=== PATIENT | male | born 1980 | race Caucasian/White ===

== ENCOUNTER 2023-01-05 11:40 | Emergency (ER) | payer BC, SELFPAY ==
[2023-01-05 11:43] VITALS: BP 149/93; PULSE 97; RESP 20; TEMP 36.3; O2SAT 99
--- NOTE | 2023-01-05 14:02 | ED.SKABFB ---
HPI - Skin/Abscess/Foreign Bdy General Chief complaint: Skin/Abscess/Foreign Body Stated complaint: facial swelling Time Seen by Provider: 01/05/23 12:39 History of Present Illness HPI narrative: Patient is a 42-year-old male who presents ER with swelling of his upper nose near the eyebrows. Developed this afternoon after squeezing a pustule located in his forehead. Pustule is very tender and is developed over the last couple of days. Patient reports she had an infection of his abdominal wall several weeks ago and was on antibiotics but has since finished those. Feels like his abdominal wall is fine. No fevers or chills but he has had some sweats but feels like it is due to the pain. No other areas of infection. No runny nose or sore throat or productive cough. Related Data Allergies Allergy/AdvReac Type Severity Reaction Status Date / Time No Known Allergies Allergy Verified 01/05/23 11:41 Review of Systems Review of Systems: All systems reviewed & are unremarkable except as noted in HPI and below Constitutional: Constitutional: Denies chills, Denies fatigue and Denies fever(s) Comments: Positive sweats ENT: Denies nasal congestion and Denies sore throat Integumentary/Breasts: Skin/Breast: Denies erythema and Denies rash Comments: Abscess scalp PMFSH Past Medical History Medical History (Updated 01/05/23 @ 14:13 by Jefferson Lara MD) Healthy adult male Surgical History Surgical History (Updated 01/05/23 @ 14:13 by Jefferson Lara MD) No pertinent past surgical history Exam Narrative: GENERAL: Well-appearing, well-nourished, and in no acute distress. HEAD: Normocephalic, atraumatic. Infected hair follicle midline at the forehead. ENT: Mucous membranes moist. Swelling over the nasal bridge near the eyes bilaterally without tenderness in this region. No cellulitis. NECK: Supple. CHEST: Clear to auscultation. No respiratory distress. HEART: Regular rate and rhythm. Normal peripheral pulses. EXTREMITIES: Normal range of motion. No edema. NEURO: Alert and oriented x3. PSYCH: Normal mood and affect. Course Course Emergency Course: Scant pus obtained. Discussed treatment plan. Patient verbalized understanding. Discharge home. Vital Signs Vital signs: Vital Signs Temperature 97.4 F L 01/05/23 11:43 Pulse Rate 97 01/05/23 11:43 Respiratory Rate 20 01/05/23 11:43 Blood Pressure 149/93 H 01/05/23 11:43 Pulse Oximetry 99 01/05/23 11:43 Oxygen Delivery Room Air 01/05/23 11:43 Temperature 97.4 F L 01/05/23 11:43 Pulse Rate 97 01/05/23 11:43 Respiratory Rate 20 01/05/23 11:43 Blood Pressure 149/93 H 01/05/23 11:43 Pulse Oximetry 99 01/05/23 11:43 Oxygen Delivery Room Air 01/05/23 11:43 Procedures Abscess I/D scalp: Date of Incision: 01/05/23 Time of Incision: 13:45 Technique: needle aspiration Irrigation: No Packing used?: none I&D Results: Pus Abcess I&D Additional Comments: Scant discharge. Discharge Plan Discharge Clinical Impression: Abscess of scalp Patient Disposition: Home, Self-Care Condition: Stable Instructions: Abscess (ED) Additional Instructions: You have a small scalp abscess. Take the antibiotics as prescribed. Additionally apply topical antibiotics. Warm compresses will also help with drainage. Return the ER if you have fever over 100.4 ?F, you lose consciousness, you have additional concerns. Prescriptions: New sulfamethoxazole-trimethoprim [Bactrim DS] 800-160 mg tablet 1 tablet PO Q12H Qty: 14 0RF mupirocin 2 % ointment 1 applic topical BID Qty: 15 0RF hydrocodone-acetaminophen 5-325 mg tablet 1 tablet PO Q6H PRN (Reason: pain) Qty: 14 0RF Follow-up/Referrals: PHYSICIAN NOT ON STAFF,NONSTAFF [Primary Care Provider] - 1 Week
== END 2023-01-05 14:30 | disposition home or self-care (01) ==
PROVIDERS: Emergency Provider Emergency Medicine
DX: L02.811 Cutaneous abscess of head [any part, except face] (principal)
CPT/HCPCS: 10160; 99283

== ENCOUNTER 2023-01-06 12:43 | Emergency (ER) | payer BC, SELFPAY ==
[2023-01-06 12:53] VITALS: BP 159/100; PULSE 103; RESP 20; TEMP 36.1; O2SAT 99
--- NOTE | 2023-01-06 15:01 | ED.WOUNDLAC ---
HPI - Wound/Laceration General Chief Complaint: Wound/Laceration Stated Complaint: eye swelling Time Seen by Provider: 01/06/23 14:47 History of Present Illness HPI narrative: 42-year-old male presenting here after he had been seen yesterday for an abscess on the top of his head that has been draining, he was able to sheepskin pickler his antibiotics and has taken it for a day, presenting here because he had gone to sleep and woke up and noticed that his eyes were more swollen. He has no pain to his face or his eyes nor blurry vision nor pain with movement of his eyes. No swelling of his lips or tongue or difficulty breathing, no nausea or vomiting, no fevers or chills. Denies any methamphetamine or IV drug use Related Data Allergies Allergy/AdvReac Type Severity Reaction Status Date / Time No Known Allergies Allergy Verified 01/05/23 11:41 Review of Systems Review of Systems: CONST: No fever. HEENT: Swelling around his eyes C/V: No chest pain RESP: No cough GI: No abdominal pain : No dysuria. M/S: No joint pain. SKIN: Redness and swelling on the top of his head NEURO: [No headache or focal numbness or weakness] PSYCH: [No depression] FORMERLY [facility], 1928–1983 Past Medical History Medical History (Updated 01/06/23 @ 14:59 by Mayelin Crockett MD) Healthy adult male Surgical History Surgical History (Updated 01/05/23 @ 14:13 by Jefferson Lara MD) No pertinent past surgical history Exam Narrative: EXAMINATION OF ORGAN SYSTEMS/BODY AREAS: Constitutional: Vital signs per nursing GENERAL:[No acute distress, non-toxic appearing.] HEAD: Normal with no signs of head trauma. EYES: Painless EOMI, conjunctiva normal, periorbital edema ENT: No lip or tongue swelling, normal voice LUNGS: Nonlabored breathing. HEART: [Regular rate and rhythm] ABD: [Soft], [nontender to palpation] EXT: Normal range of motion, multiple areas on bilateral arms that look like skin picking SKIN: Indurated area to the top of the head without any fluctuance with some mild swelling, multiple areas on the body that looks like skin picking NEURO: [Alert and oriented x 3. No gross focal sensory or strength deficits.] PSYCH: Slightly nervous/twitchy affect Course Vital Signs Vital signs: Vital Signs Temperature 97.0 F L 01/06/23 12:53 Pulse Rate 103 H 01/06/23 12:53 Respiratory Rate 20 01/06/23 12:53 Blood Pressure 159/100 H 01/06/23 12:53 Pulse Oximetry 99 01/06/23 12:53 Oxygen Delivery Room Air 01/06/23 12:53 Temperature 97.0 F L 01/06/23 12:53 Pulse Rate 94 01/06/23 15:14 Respiratory Rate 16 01/06/23 15:14 Blood Pressure 141/86 H 01/06/23 15:14 Pulse Oximetry 98 01/06/23 15:14 Oxygen Delivery Room Air 01/06/23 12:53 MDM - Wound/Laceration MDM Narrative Medical decision making narrative: 42-year-old male presents here for wound recheck, he had been diagnosed with an abscess yesterday on his head, he is here because he is noticing some swelling to his eyes. Vital signs stable, on exam he has some periorbital swelling, abscess here is nonfluctuant and no longer draining, there is no large area of induration, it is not very tender, he has intact extraocular movements without any pain, no erythema or induration anywhere other than the small area of abscess on the top of his head. She is I have offered labs and imaging at this time though I do not feel this is necessary, and patient declined this, he would just like to try some steroids to see if that helps with the swelling. I feel this is very reasonable, he has been on Bactrim in the past and states that that has worked for him so I will have him continue this. Strict return precautions are discussed with mother at bedside. He is agreeable to outpatient follow-up at this time Discharge Plan Discharge Clinical Impression: Periorbital swelling, Abscess Patient Disposition: Home, Self-Care Condition: Stable Instructions: Antibiotic Form, Edema (ED), Ab
[2023-01-06] MEDS: predniSONE 20 MG TABLET 40 MG PO (15:10)
[2023-01-06 15:14] VITALS: BP 141/86; PULSE 94; RESP 16; O2SAT 98
== END 2023-01-06 15:15 | disposition home or self-care (01) ==
LOC: ANHED 15:05
PROVIDERS: Emergency Provider Emergency Medicine
DX: H05.013 Cellulitis of bilateral orbits (principal)
CPT/HCPCS: 99283; J7512

== ENCOUNTER 2023-03-30 13:09 | Emergency (ER) | payer BC, SELFPAY ==
[2023-03-30 13:19] VITALS: BP 169/88; PULSE 93; RESP 16; TEMP 36.6; O2SAT 99
--- NOTE | 2023-03-30 13:56 | ED.SKABFB ---
HPI - Skin/Abscess/Foreign Bdy General Chief complaint: Skin/Abscess/Foreign Body Stated complaint: Feet Swelling/Head Rash Time Seen by Provider: 03/30/23 13:56 Source: patient Mode of arrival: ambulatory Limitations: no limitations History of Present Illness HPI narrative: 42-year-old male presents with complaint open draining sore to back of head for approximately 1 week. Patient reports history of MRSA. Has had open the wound to scalp in the past. Reports last time he went to the ER and was given antibiotic and antibiotic ointment. Patient also reports or legs for the past several weeks. Swelling does not decrease when legs elevated or overnight. Denies pain to links. Patient thinks that legs are swollen due to an infection on his scalp. Denies urinary complaints. No chest pain or shortness of breath. Afebrile. All systems reviewed and negative except as noted above. Related Data Allergies Allergy/AdvReac Type Severity Reaction Status Date / Time No Known Allergies Allergy Verified 01/05/23 11:41 Review of Systems Review of Systems: CONSTITUTIONAL: Denies fever, chills, or sweats. EYES: Denies visual changes, redness, or discharge. ENT: Denies rhinorrhea, congestion, sore throat, or otalgia. CARDIOVASCULAR: Denies chest pain, palpitations. Reports lower leg swelling. RESPIRATORY: Denies cough or dyspnea. GASTROINTESTINAL: Denies abdominal pain, nausea, vomiting, or diarrhea. GENITOURINARY: Denies dysuria or hematuria. SKIN: Denies rash or itching. Reports open draining sore to posterior scalp MUSCULOSKELETAL: Denies back pain, joint pain, or myalgia. NEUROLOGIC: Denies headache, numbness, or weakness. PSYCHIATRIC: Denies anxiety or depression. All other systems reviewed are negative, except as documented in HPI. PMFSH Past Medical History Medical History (Updated 04/02/23 @ 08:45 by Tracey Rowe NP) Healthy adult male Surgical History Surgical History (Updated 01/05/23 @ 14:13 by Jefferson Lara MD) No pertinent past surgical history Comments At time of signature, agree with nursing past medical, surgical, social and family history. There is no relevant family history pertinent to the presenting complaint. Exam Narrative: GENERAL: This is a well-nourished, well-developed patient, in no apparent distress. Patient has pale appearance. HEAD: normocephalic, atraumatic. EYES: PERRL. Sclera clear/white. Vision is grossly intact. EARS: External ears normal NOSE: External nose normal NECK: Neck supple, non-tender without lymphadenopathy, masses or thyromegaly. CARDIOVASCULAR: Regular rate and rhythm without murmurs, gallops, or rubs. RESPIRATORY: Clear to auscultation. Breath sounds equal bilaterally. No wheezes, rales, or rhonchi. SKIN: warm, Dry, intact with no suspicious lesions or rash, good texture and turgor. No open draining and there sore to left posterior occiput. Drainage is purulence with tenderness on palpation. Erythematous and swollen. NEURO: awake, alert, and oriented to person, place and time. There were no obvious focal neurologic abnormalities. EXTREMITIES: No joint tenderness, effusion. 2+ pitting edema to bilateral lower extremities. Course Course Level of Care: Express Care Visit Vital Signs Vital signs: Vital Signs Temperature 36.6 C 03/30/23 13:19 Pulse Rate 93 03/30/23 13:19 Respiratory Rate 16 03/30/23 13:19 Blood Pressure 169/88 H 03/30/23 13:19 Pulse Oximetry 99 03/30/23 13:19 Oxygen Delivery Room Air 03/30/23 13:19 Temperature 36.6 C 03/30/23 13:19 Pulse Rate 93 03/30/23 13:19 Respiratory Rate 16 03/30/23 13:19 Blood Pressure 169/88 H 03/30/23 13:19 Pulse Oximetry 99 03/30/23 13:19 Oxygen Delivery Room Air 03/30/23 13:19 Reviewed, BP elevated today. Patient is not on any medications to treat hypertension. MDM - Skin/Abscess/Foreign Bdy MDM Narrative Medical decision making narrative: Recomm
--- NOTE | 2023-03-30 14:09 | PC.NURSE ---
was unable to give urine spec. stated has not been urinating much lately.
[2023-03-30 14:10] LABS: Glucose Point of Care 116 mg/dl (65-105)
== END 2023-03-30 14:20 | disposition left against medical advice (07) ==
PROVIDERS: Emergency Provider Nurse Practitioner Family
DX: L08.9 Local infection of the skin and subcutaneous tissue, unspecified (principal); M79.89 Other specified soft tissue disorders; R03.0 Elevated blood-pressure reading, without diagnosis of hypertension
CPT/HCPCS: 82948; 99212; G0463

== ENCOUNTER 2025-01-22 10:24 | Emergency (ER) | payer BC, SELFPAY ==
--- NOTE | 2025-01-22 10:29 | ED.DENTAL ---
HPI - Dental/Oral General Chief complaint: Dental/Oral Stated complaint: Broken Jaw Infection Time Seen by Provider: 01/22/25 10:40 Source: patient Mode of arrival: ambulatory Limitations: no limitations History of Present Illness HPI Narrative: 44-year-old male presents with concern for infection in his face. He reports 3 weeks ago he broke his jaw in 2 places, including the lower anterior mandible. He reports he was observed in the hospital for 24 hours and discharged with antibiotics. Reports he took 3 days of antibiotics and then was unable to finish them due to life circumstances. He reports he also has not followed up with surgery as directed due to life circumstances. He now reports that chin has been red, swollen, tender and has purulence drainage. He denies fever, body aches, chills, sweats. He denies dental pain. He denies drainage on the inside of his mouth. Related Data Home Medications ?Medication ?Instructions ?Recorded ?Confirmed ?Last Taken ?Type amoxicillin 875 mg-potassium tablet 01/22/25 Unknown History clavulanate 125 mg tablet Allergies Allergy/AdvReac Type Severity Reaction Status Date / Time No Known Allergies Allergy Verified 01/22/25 10:37 Review of Systems Review of Systems: CONSTITUTIONAL: Denies malaise, chills, sweats, or fever. EYES: Denies visual changes ENT: Reports pain, swelling, redness to the chin with purulent drainage CARDIOVASCULAR: Denies chest pain, palpitations RESPIRATORY: Denies cough or dyspnea. SKIN: Denies rash or itching. MUSCULOSKELETAL: Denies myalgia. NEUROLOGIC: Denies numbness, weakness, or headache. All systems reviewed & are unremarkable except as noted in HPI and below PMFSH Past Medical History Medical History (Updated 01/22/25 @ 10:48 by Johanna Talbert NP) Healthy adult male Surgical History Surgical History (Updated 01/05/23 @ 14:13 by Jefferson Lara MD) No pertinent past surgical history Comments At time of signature, agree with nursing past medical, surgical, social and family history. There is no relevant family history pertinent to the presenting complaint Exam Narrative: GENERAL: Well-appearing, well-nourished, and in no acute distress. HEAD: Normocephalic, atraumatic. EYES: PERRLA, sclera clear ENT: Nares clear, no rhinorrhea or epistaxis. Mucous membranes moist. Oropharynx without erythema or lesions. Dentalgia grossly normal. NECK: Supple. No lymphadenopathy. CHEST: No respiratory distress. Speaks in full sentences. HEART: Regular rate and rhythm. SKIN: Warm, dry, no visible rash. Erythema, edema, tenderness with scabbed skin noted to the chin NEURO: Alert and oriented x3. PSYCH: Normal mood and affect Course Course Emergency Course: Discussion was had at length with patient about need for transfer to the emergency room based on his history of jaw fracture without antibiotic treatment and his current symptoms. Patient is refusing transfer to the emergency room. I will treat the patient to the best of my ability with antibiotics and advised to go to the emergency room soon as possible. Portions of this record may have been created with voice recognition software Level of Care: Express Care Visit Vital Signs Vital signs: Reviewed. MDM - Dental/Oral MDM Narrative Medical decision making narrative: The patient has requested to leave the Urgent Care against medical advice. The patient reason(s) for leaving include, but are not limited to, the following: ?I have too much to do today go to the ER I believe this patient is of sound mind and competent to refuse medical care. The patient is responding and asking questions appropriately. The patient is oriented to person, place and time. The patient is not psychotic, delusional, suicidal, homicidal or hallucinating. The patient demonstrates a normal mental capacity to make decisions regarding their healthcare. The patient is clinically sober and does not appear to be under the influence of any illicit drugs at this time. The patient has been advised of the risks, in layman terms, of leaving AMA which include, but are not limited to , coma, permanent disability, loss of current lifestyle, delay in diagnosis. Alternatives have been offered - the patient remains steadfast in their wish to leave without transfer to the emergency room. The patient has been advised that should they change their mind they should promptly go to the emergency room. The patient understands that in no way does an AMA discharge mean that I do not want them to have the best medical care available. To this end, I have provided appropriate prescriptions, referrals, and discharge instructions. The patient did sign AMA paperwork. The above discussion was witnessed by another member of staff. Differential Diagnosis Differential diagnosis: Likely gingival abscess, dental caries, toothache, dental abscess, fracture of tooth and aphthous ulcer Critical Care Time Critical Care Time Critical Care Time: No Discharge Plan Discharge Clinical Impression: Infection Patient Disposition: Left Against Medical Advice Condition: Stable Instructions: Antibiotic Form, Osteomyelitis (ED) Additional Instructions: As discussed, it is my advice that he seek care in the emergency room right away to treat possible bone infection which could require IV antibiotics or surgery. I will treat your infection is the best my ability with oral antibiotics, however this may not be sufficient. Your infection going untreated could lead to disability or . Please go to the emergency room as soon as you can for appropriate treatment for your infection. Patient Language: Upper Sorbian Prescriptions: New clindamycin HCl 300 mg capsule 300 mg PO Q8H 7 Days Qty: 21 0RF No Action amoxicillin-pot clavulanate 875-125 mg tablet Follow-up/Referrals: PHYSICIAN,PYROMETER MECHANIC [Primary Care Provider] - Time of Disposition: 10:48
[2025-01-22 10:35] VITALS: BP 132/88; PULSE 97; RESP 18; TEMP 35.7; O2SAT 100
--- OUTSIDE RECORDS SUMMARY | 2025-01-22 10:51 | XMS_ITS | Clinical Summary ---
Author Organization [facility] Address [address] [address] Phone Care Team Providers Care Metal Bumper Name Role Phone Provider, None Primary Care Provider Unavailabl e Allergies No known active allergies Medications * This document contains information received from the source organization and may not represent a complete record from that organization. methocarbamol (ROBAXIN) 750 MG Tablet Take 1 Tablet by mouth every 6 hours as needed for Other (For muscle aches) for up to 24 doses. 24 Tablet 5 Active buprenorphine 2 MG SL TabletIndicatio ns:Stimulant withdrawal (HCC),Opioid withdrawal (HCC) 1 Tablet by Sublingual route every 12 hours as needed for Withdrawal for up to 4 doses. 4 Tablet 5 Active naloxone HCl (Narcan) 4 MG/0.1ML Liquid 1 Bandy by Nasal route as needed for Opioid Reversal. Administer in one nostril for symptoms of overdose (severe sleepiness, breathing problems, not responsive). Call 911. May repeat 1 spray in alternate nostril in 2-3 minutes if needed. 2 Each 5 Active Active Problems Problem Noted Date Diagnosed Date Opioid withdrawal 11/15/2024 Stimulant withdrawal 11/15/2024 MRSA cellulitis 11/19/2023 Overview (11/15/2024): to BLE cellulitis Airway intubation performed without difficulty 0 11/19/2023 Overview (11/15/2024): intubated d/t combativeness during detox Subclinical hypothyroidism Pre-diabetes Pulmonary HTN Anxiety Leg swelling Overview (11/15/2024): chronic BLE swelling PTSD (post-traumatic stress disorder) Fentanyl dependence Cocaine abuse Methamphetamine abuse Tobacco abuse Encounters * This document contains information received from the source organization and may not represent a complete record from that organization. Date Type Department Care Team Description 11/15/2024 Travel from Last 3 Months Social History Tobacco Use Types Packs/Day Years Used Date Smoking Tobacco: Every Day Cigarettes 0.5 34.6 Started: 1990 Smokeless Tobacco: Never Tobacco Cessation:Ready to Q uit: Not Asked; Counseling Given: Not Answered Alcohol Use Standard Drinks/Week Comments Not Currently 0 (1 standard drink = 0.6 oz pur e alcohol) [facility] Utilities Answer Date Recorded In the past 12 months has [employer] electric, gas, oil, or water [employer] threatened to shut off services in your home? Patient declined 11/15/2024 Social Connection and Isolation Panel Answer Date Recorded In a typical week, how many times do you talk on the phone with family, friends, or neighbors? Patient declined 11/15/2024 How often do you get togethe r with friends or relatives? Patient declined 11/15/2024 How often do you attend uatsdin or faith serv ices? Patient declined 11/15/2024 Do you belong to any clubs o r organizations such as uatsdin groups, unions, fraternal or athletic groups, or school groups? Patient declined 11/15/2024 How often do you attend meet ings of the clubs or organizations you belong to? Patient declined 11/15/2024 Are you , , di vorced, , never , or living with a partner? Patient declined 11/15/2024 AUDIT-C Answer Date Recorded Q1: How often do you have a drink containing alc ohol? Patient declined 11/15/2024 Q2: How many drinks containi ng alcohol do you have on a typical day when you are drinking? Patient declined 11/15/2024 Q3: How often do you have si x or more drinks on one occasion? Patient declined 11/15/2024 Overall Financial Resource Strain (CARDIA) Answe r Date Recorded How hard is it for you to pa y for the very basics like food, housing, medical care, and heating? Patient declined 11/15/2024 [facility] of Occupat ional Health - Occupational Stress Questionnaire Answer Date Recorded Do you feel stress - tense, restless, nervous, or anxious, or unable to sleep at night because your mind is troubled all the time - these days? Patient declined 11/15/2024 Exercise Vital Sign Answer Date Recorde d On average, how many days pe r week do you engage in moderate to strenuous exercise (like a brisk walk)? Patient declined On average, how many minutes do you engage in exercise at this level? Patient declined 11/15/2024 Hunger Vital Sign Answer Date Recorded Within the past 12 months, y ou worried that your food would run out before you got the money to buy more. Patient declined Within the past 12 months, t he food you bought just didn't last and you didn't have money to get more. Patient declined PRAPARE - Transportation Answer Date Re corded In the past 12 months, has l ack of transportation kept you from medical appointments or from getting medications? Patient declined 11/15/2024 In the past 12 months, has l ack of transportation kept you from meetings, work, or from getting things needed for daily living? Patient declined 11/15/2024 Housing Stability Vital Sign Answer Rito e Recorded In the last 12 months, was t here a time when you were not able to pay the mortgage or rent on time? Patient declined 11/16/19 25 In the past 12 months, how m any times have you moved where you were living? 0 11/15/2024 At any time in the past 12 m [facility], were you homeless or living in a custodial (including now)? Patient declined 11/15/2024 Sex and Gender Information Value Date Recorded Sex Assigned at Not on file Legal Sex Male 8:33 AM CDT Gender Identity Not on file Sexual Orientation Not on file Last Filed Vital Signs Vital Sign Reading Time Taken Comments Blood Pressure 113/75 11/18/2024 7:16 AM CDT Pulse 85 11/18/2024 7:16 AM CDT Temperature 36.1 C (97 F) 11/18/2024 7:16 AM CDT Respiratory Rate 20 11/18/2024 8:28 AM CDT Oxygen Saturation 100% 11/18/2024 7:16 AM CDT Inhaled Oxygen Concentration - - Weight 90.7 kg (200 lb) 11/15/2024 11:57 AM CDT Height 188 cm (6' 2) 11/15/2024 11:57 AM CDT Body Mass Index 25.68 11/15/2024 11:57 AM CDT Plan of Treatment Health Maintenance Due Date Last Done Comments Hepatitis B Immunization (1 of 3 - 19+ 3-dose series) 1999 Pneumococcal Immunization Co mbined (1 of 2 - PCV) 1999 Human Papillomavirus (HPV) Immunization (1 - 3-dose SCDM series) 2007 SARS-COV-2 Immunization (1 - 2023-25 season) 2024 Influenza Immunization (#1) 2025 Respiratory Syncytial Virus (RSV) Immunization (Adult) (1 - 1-dose 75+ series) 2055 TdaP Immunization Completed 11/23/2022 Hepatitis C Virus (HCV) Screening Completed 024 Meningococcal Immunization (ACWY) Aged Out No longer eligible based on patient's age to complete this topic Rotavirus Immunization Aged Out No lo nger eligible based on patient's age to complete this topic Procedures Procedure Name Priority Date/Time Associated Diagnosis Comments LAVENDER TOP TUBE Routine 11/18/2024 5:1 1 AM CDT EXTRA TUBES Routine 11/18/2024 5:11 AM CDT BASIC METABOLIC PANEL W/ CALCIUM TOTAL Routine 11/18/2024 5:11 AM CDT THYROID SCREEN WITH REFLEX Routine 11/17/2024 4:41 AM CDT THYROID SCREEN WITH REFLEX Routine 11/17/2024 4:41 AM CDT HEMOGLOBIN A1C W/ ESTIMATED GLUCOSE Routine 11/17/2024 4:41 AM CDT B-TYPE NATRIURETIC PEPTIDE (BNP) Routine 11/17/2024 4:41 AM CDT BASIC METABOLIC PANEL W/ CALCIUM TOTAL Routine 11/17/2024 4:41 AM CDT ADULT TRANS THORACIC ECHO 2D COMPLETE Routine 11/16/2024 8:31 PM CDT URINALYSIS (UA) MACROSCOPIC Routine 11/16/2024 7:39 AM CDT URINE DRUG SCREEN Routine 11/16/2024 7:3 9 AM CDT CBC WITH AUTO DIFFERENTIAL Routine 11/16/2024 3:52 AM CDT BASIC METABOLIC PANEL W/ CALCIUM TOTAL Routine 11/16/2024 3:52 AM CDT COMPLETE BLOOD COUNT (CBC) WITH DIFF Routine 11/16/2024 3:52 AM CDT RHYTHM STRIP 11/16/2024 12:00 AM CDT RHYTHM STRIP 11/16/2024 12:00 AM CDT RHYTHM STRIP 11/16/2024 12:00 AM CDT GOLD TOP TUBE Routine 11/15/2024 1:36 PM CDT CBC WITH AUTO DIFFERENTIAL Routine 11/15/2024 1:36 PM CDT EXTRA TUBES Routine 11/15/2024 1:36 PM CDT ETHYL ALCOHOL (ETHANOL) Routine 11/15/2024 1:36 PM CDT PROTIME (PT) (PROTHROMBIN TIME) Routine 11/15/2024 1:36 PM CDT CMP (COMPREHENSIVE METABOLIC PANEL) Routine 11/15/2024 1:36 PM CDT COMPLETE BLOOD COUNT (CBC) WITH DIFF Routine 11/15/2024 1:36 PM CDT RHYTHM STRIP 11/15/2024 12:00 AM CDT RHYTHM STRIP 11/15/2024 12:00 AM CDT from Last 3 Months Results * Lavender Top Tube (11/18/2024 5:11 AM CDT) Blood No Phlebotomy Charged / Unknown 11/18/2024 5:11 AM CDT 11/18/2024 5:11 AM CDT us Rubia Humphries MD HEMATOLOGY ORDERABLE S Final Result [facility] [place] [address] * (ABNORMAL) BMP Routine (11/18/2024 5:11 AM CDT) Only the most recent of3 resultswithin the time period is included. SODIUM 138 136 - 145 mmol/L 11/18/2024 5:34 AM CDT [facility] POTASSIUM 3.5 3.5 - 5.1 mmol/L 11/18/2024 5:34 AM CDT [facility] CHLORIDE 103 98 - 107 mmol/L 11/18/2024 5:34 AM CDT [facility] CO2, VENOUS 26 22 - 30 mmol/L 11/18/2024 5:34 AM CDT [facility] ANION GAP 12.5 <18.0 mmol/L 11/18/2024 5:34 AM CDT [facility] GLUCOSE 125(H) 70 - 99 mg/dL 11/18/2024 5:34 AM CDT [facility] BUN 13 9 - 21 mg/dL 11/18/2024 5:34 AM CDT [facility] CREATININE, BLOOD 1.27 0.70 - 1.30 mg/dL 11/18/2024 5:34 AM CDT [facility] BUN/CREATININE RATIO 10(L) 12 - 20 ratio 11/18/2024 5:34 AM CDT [facility] CALCIUM 8.3(L) 8.7 - 10.5 mg/dL 11/18/2024 5:34 AM CDT [facility] GFR, ESTIMATED >60 >=60 11/18/2024 5:34 AM CDT [facility] Comment: Creatinine Clearance is the preferred criteria for selecting drug dose adjustments in renally impaired patients. The GFR is provided as additional pertinent clinical information. GFR is reported in mL/min/1.73 sq m. Calculation based on the Chronic Kidney Disease Epidemiology Collaboration (CKD- EPI) equation refit without adjustment for race. GFR, EST. >60 >=60 025 5:34 AM CDT [facility] GFR, EST. NONAFRICAN >60 >=60 11/18/2024 5:34 AM CDT [facility] Blood BLOOD SPECIMEN / Unknown Venipuncture / Unknown 11/18/2024 5:11 AM CDT 11/18/2024 5:11 AM CDT Rubia Humphries MD CHEMISTRY ORDERABLES Final Result [facility] [address] [place] [address] * THYROID SCREEN WITH REFLEX (11/17/2024 4:41 AM CDT) TSH 0.992 0.300 - 5.000 mIU/L 11/17/2024 6:20 AM CDT [facility] Blood BLOOD SPECIMEN / Unknown Venipuncture / Unknown 11/17/2024 4:41 AM CDT 11/17/2024 5:33 AM CDT us Rubia Humphries MD CHEMISTRY ORDERABLES Final Result [facility] [address] [place] [address] * Hemoglobin A1C w/ Estimated Glucose (11/17/2024 4:41 AM CDT) HGB-A1C 5.2 4.0 - 6.0 % 11/17/2024 6:09 AM CDT [facility] Est Average Glucose 102.5 mg/dL 11/17/2024 6:09 AM CDT [facility] Blood Venipuncture / Unknown 11/17/2024 4:41 AM CDT 11/17/2024 5:32 AM CDT Narrative [facility] - 11/17/2024 6:09 AM CDT HEMOGLOBIN A1C: DIABETIC PATIENTS: WELL-CONTROLLED: 6.2 - 7.0 INTERMEDIATE WELL-CONTROLLED: 7.0 - 9.0 POORLY-CONTROLLED: >9.0 Specimens containing greater than 5% of Hemoglobin F may result in lower than expected % HbA1C results. Rubia Humphries MD CHEMISTRY ORDERABLES Final Result Performing Organization Address City/[facility] Co de Phone Number [facility] [address] [place] [address] * B-Type Natriuretic Peptide (BNP) (11/17/2024 4:41 AM CDT) Pathologist [facility] B TYPE NATRIURETIC PEPTIDE <15 <100 pg/mL 11/17/2024 6:00 AM CDT [facility] Blood Venipuncture / Unknown 11/17/2024 4:41 AM CDT 11/17/2024 5:31 AM CDT Rubia Humphries MD CHEMISTRY ORDERABLES Final Result Performing Organization Address [facility] de Phone Number [facility] [address] [place] [address] * ADULT TRANS THORACIC ECHO 2D COMPLETE (11/16/2024 8:31 PM CDT) AV Peak Grad mmHg 5.38 mmHg RESULTING AGENCY Mean Aortic Valve Gradient (MAVG) 3 mmHg RESULTING AGENCY LV end lillian diam cm 4.5 cm RESULTING AGENCY LV end sys diam cm 2.6 cm RESULTING AGENCY Aortic Root Diam cm 3.4 cm RESULTING AGENCY LVOT Peak Michael m/sec [id number] m/sec RESULTING AGENCY AV Peak Michael m/sec 1.16 m/sec RESULTING AGENCY MV Mean Grad mmHg 2 mmHg RESULTING AGENCY E/A Ratio 0.84 RESULTING AGENCY E/E' 5.8 RESULTING AGENCY AV Area (VTI) cm2 3.85 cm2 RESULTING AGENCY SEPTUM DIASTOLIC CM 1 cm RESULTING AGENCY PW DIASTOLIC CM 1 cm RESULTING AGENCY LV EF(estimated)% 73 RESULTING AGENCY Anatomical Region Laterality Modality CARDIO N/A Ultrasound Narrative 11/17/2024 11:21 AM CDT Transthoracic Echocardiography Report (TTE) Patient name YESSENIA Ratliff 1980 Patient ID (UP) [id number] Indications: Congestive heart failure. Study Date11/16/2024 Technical quality: Limited visualization Limitation Reason: Patient unable to roll to left side Type of Study: TTE procedure: Adult Trans Thoracic Echo 2D Complete. Priority:RoutineHR: 96 bpmBP: 125/70 mmHg Conclusions Summary - Normal LV size, diastolic and systolic function. estimated LVEF 70-75% - Normal right ventricular cavity size and normal systolic function. - No hemodynamically significant valvular abnormalities Findings Mitral Valve The mitral valve is normal. There is no evidence of mitral stenosis. There is no significant mitral regurgitation. Aortic Valve The aortic valve is trileaflet with normal leaflet excursion. There is no evidence of aortic valve stenosis. There is no significant aortic valve insufficiency. Tricuspid Valve The tricuspid valve is normal. There is no evidence of tricuspid stenosis. There is no significant tricuspid regurgitation. There is no evidence of pulmonary hypertension. Pulmonic Valve Not well visualized, no evidence by Doppler interrogation for significant stenosis or regurgitation. Left Atrium The left atrium size is normal. Left Ventricle -Normal LV size, diastolic and systolic function. estimated LVEF 70-75% Right Atrium The right atrium size is normal. Right Ventricle - Normal right ventricular cavity size and normal systolic function. Pericardial Effusion The pericardium is normal. There is no pericardial effusion visualized. Miscellaneous Aortic root and proximal ascending aorta are normal in size. Atrial septum appears intact. IVC is normal in size and respiratory response. Aortic arch appears normal. Valves Mitral Valve Peak E-Wave: 0.59 m/s Area (continuity): 2.87 cm^2 Peak A-Wave: 0.70 m/s Mean Velocity: 0.57 m/s Peak Gradient: 1.43 mmHg Mean Gradient: 2 mmHg Deceleration Time: 239 msec Tissue Doppler E' Velocity: 0.07 m/s E/E':5.8 E/A Ratio: 0.84 E/Lat E': 5.8 E/Med E':8.1 Aortic Valve Area (continuity): 3.85 cm^2 Mean Velocity: 0.78 m/s Area (VTI):3.85 cm^2 Mean Gradient: 3 mmHg Peak Velocity: 1.16 m/s AV VTI: 16.2 cm Peak Gradient: 5.38 mmHg Tricuspid Valve Peak E-Wave: 0.56 m/s Peak Gradient: 1.26 mmHg Pulmonic Valve Peak Velocity: 1.07 m/s Mean Velocity: 0.75 m/s Peak Gradient: 4.58 mmHg Mean Gradient: 3 mmHg LVOT Peak Velocity: 0.79 m/s Mean Velocity: 0.56 m/s Peak Gradient: 3 mmHg Mean Gradient: 1 mmHg LVOT Diameter: 2.2 cm LVOT VTI: 16.4 cm Stroke Volume: 62 ml Stroke Volume Index: 28.57 ml/m^2 Structures Left Ventricle Diastolic Dimension: 4.5 cm Systolic Dimension: 2.6 cm Septum Diastolic: 1 cm Septum Systolic: 1.1 cm PW Diastolic: 1 cm PW Systolic: 1.7 cm CO: 5.98 l/min CI: 2.76 l/min*m^2 RWT: 0.44 FS: 42.22 % LVOT Diameter: 2.2 cm Right Ventricle RVOT (PLAX) diameter:3.4 cm Tissue Doppler RV S': 26.9 Left Atrium LA Systolic Pressure: 9.25 mmHg LA Area: 13.6 cm^2 Right Atrium RA Area: 11.2 cm^2 Great Vessels Aorta Ascending Aorta: 2.7 cm Aorta Root:3.4 cm Ascending Aorta Index:1.24 cm/m^2 Demographics Age 44 Gender Male Race Height 74.02 in. Weight 200 lbs. BMI (BSA) 25.67 kg/m^2 (2.17 m^2) Financial Health Counselor Ady Susan Room 237 R Interpreting Bautista Referring [facility]ISM[facility]ATFIELD Physician Angelica Physician Procedure Note Angelica Baum MD - 11/17/2024 Transthoracic Echocardiography Report (TTE) Patient name YESSENIA BOBBY D.O.B. 1980 Patient ID ([facility]) [id number] Indications: Congestive heart failure. Study Date11/16/2024 Technical quality: Limited visualization Limitation Reason: Patient unable to roll to left side Type of Study: TTE procedure: Adult Trans Thoracic Echo 2D Complete. Priority:RoutineHR: 96 bpmBP: 125/70 mmHg Conclusions Summary - Normal LV size, diastolic and systolic function. estimated LVEF 70-75% - Normal right ventricular cavity size and normal systolic function. - No hemodynamically significant valvular abnormalities Findings Mitral Valve The mitral valve is normal. There is no evidence of mitral stenosis. There is no significant mitral regurgitation. Aortic Valve The aortic valve is trileaflet with normal leaflet excursion. There is no evidence of aortic valve stenosis. There is no significant aortic valve insufficiency. Tricuspid Valve The tricuspid valve is normal. There is no evidence of tricuspid stenosis. There is no significant tricuspid regurgitation. There is no evidence of pulmonary hypertension. Pulmonic Valve Not well visualized, no evidence by Doppler interrogation for significant stenosis or regurgitation. Left Atrium The left atrium size is normal. Left Ventricle -Normal LV size, diastolic and systolic function. estimated LVEF 70-75% Right Atrium The right atrium size is normal. Right Ventricle - Normal right ventricular cavity size and normal systolic function. Pericardial Effusion The pericardium is normal. There is no pericardial effusion visualized. Miscellaneous Aortic root and proximal ascending aorta are normal in size. Atrial septum appears intact. IVC is normal in size and respiratory response. Aortic arch appears normal. Valves Mitral Valve Peak E-Wave: 0.59 m/s Area (continuity): 2.87 cm^2 Peak A-Wave: 0.70 m/s Mean Velocity: 0.57 m/s Peak Gradient: 1.43 mmHg Mean Gradient: 2 mmHg Deceleration Time: 239 msec Tissue Doppler E' Velocity: 0.07 m/s E/E':5.8 E/A Ratio: 0.84 E/Lat E': 5.8 E/Med E':8.1 Aortic Valve Area (continuity): 3.85 cm^2 Mean Velocity: 0.78 m/s Area (VTI):3.85 cm^2 Mean Gradient: 3 mmHg Peak Velocity: 1.16 m/s AV VTI: 16.2 cm Peak Gradient: 5.38 mmHg Tricuspid Valve Peak E-Wave: 0.56 m/s Peak Gradient: 1.26 mmHg Pulmonic Valve Peak Velocity: 1.07 m/s Mean Velocity: 0.75 m/s Peak Gradient: 4.58 mmHg Mean Gradient: 3 mmHg LVOT Peak Velocity: 0.79 m/s Mean Velocity: 0.56 m/s Peak Gradient: 3 mmHg Mean Gradient: 1 mmHg LVOT Diameter: 2.2 cm LVOT VTI: 16.4 cm Stroke Volume: 62 ml Stroke Volume Index: 28.57 ml/m^2 Structures Left Ventricle Diastolic Dimension: 4.5 cm Systolic Dimension: 2.6 cm Septum Diastolic: 1 cm Septum Systolic: 1.1 cm PW Diastolic: 1 cm PW Systolic: 1.7 cm CO: 5.98 l/min CI: 2.76 l/min*m^2 RWT: 0.44 FS: 42.22 % LVOT Diameter: 2.2 cm Right Ventricle RVOT (PLAX) diameter:3.4 cm Tissue Doppler RV S': 26.9 Left Atrium LA Systolic Pressure: 9.25 mmHg LA Area: 13.6 cm^2 Right Atrium RA Area: 11.2 cm^2 Great Vessels Aorta Ascending Aorta: 2.7 cm Aorta Root:3.4 cm Ascending Aorta Index:1.24 cm/m^2 Demographics Age 44 Gender Male Race Height 74.02 in. Weight 200 lbs. BMI (BSA) 25.67 kg/m^2 (2.17 m^2) Financial Health Counselor Ady Davis Room 237 R Interpreting Bautista Referring [facility]ISM[facility] HATFIELD Physician Angelica Physician Bri Mora MD IMG ECHO ORDERABLES Edited Res ult - Final * (ABNORMAL) Urinalysis (Ua) Macroscopic (11/16/2024 7:39 AM CDT) SPECIFIC GRAVITY 1.010 1.003 - 1.030 11/16/2024 7:47 AM CDT [facility] URINE PH 7.0 5.0 - 9.0 11/16/2024 7:47 AM CDT [facility] WBC ESTERASE Negative Negative 11/16/2024 7:47 AM CDT [facility] NITRITE Negative Negative 11/16/2024 7:47 AM CDT [facility] PROTEIN, RANDOM URINE 30 mg/dL(A) Negative 11/16/2024 7:47 AM CDT [facility] URINE GLUCOSE, QUAL Negative Negative 11/16/2024 7:47 AM CDT [facility] URINE KETONES Negative Negative 11/16/2024 7:47 AM CDT [facility] UROBILINOGEN Normal Normal mg/dL 11/16/2024 7:47 AM CDT [facility] URINE BLOOD 10 /uL(A) Negative leigha/ul 11/16/2024 7:47 AM CDT [facility] URINALYSIS COLOR Yellow 11/17/19 7:47 AM CDT [facility] URINALYSIS CLARITY Slightly Cloudy 11/16/2024 7:47 AM CDT [facility] Urine Non-Phlebotomy Collection / Unknown 11/16/2024 7:39 AM CDT 11/16/2024 7:40 AM CDT Anita Genao LINE PAINTING MACHINE OPERATOR, [employer] URINE ORDERABLES Final Result [facility] [place] [address] * (ABNORMAL) Urine Drug Screen (11/16/2024 7:39 AM CDT) UR AMPHETAMINE DETECTED(A) NON DETECTED 11/16/2024 7:58 AM CDT [facility] Comment: FOR MEDICAL USE ONLY. CUTOFF CONCENTRATION FOR DETECTED RESULT: AMPHETAMINE: 500 NG/ML UR BENZODIAZEPINES NON DETECTED NON DETECTED 11/16/2024 7:58 AM CDT [facility] Comment: FOR MEDICAL USE ONLY. CUTOFF CONCENTRATION FOR DETECTED RESULT: BENZODIAZAPINE: 200 NG/ML UR COCAINE METABOLITE DETECTED(A) NON DETECTED 11/16/2024 7:58 AM CDT [facility] Comment: FOR MEDICAL USE ONLY. CUTOFF CONCENTRATION FOR DETECTED RESULT: COCAINE: 150 NG/ML UR OPIATES NON DETECTED NON DETECTED 11/16/2024 7:58 AM CDT [facility] Comment: FOR MEDICAL USE ONLY. CUTOFF CONCENTRATION FOR DETECTED RESULT: OPIATES: 300 NG/ML UR PHENCYCLIDINE NON DETECTED NON DETECTED 11/16/2024 7:58 AM CDT [facility] Comment: FOR MEDICAL USE ONLY. CUTOFF CONCENTRATION FOR DETECTED RESULT: PCP: 25 NG/ML UR CANNABINOID NON DETECTED NON DETECTED 11/16/2024 7:58 AM CDT [facility] Comment: FOR MEDICAL USE ONLY. CUTOFF CONCENTRATION FOR DETECTED RESULT: THC (MARIJUANA): 50 NG/ML UR BARBITURATE NON DETECTED NON DETECTED 11/16/2024 7:58 AM CDT [facility] Comment: FOR MEDICAL USE ONLY. CUTOFF CONCENTRATION FOR DETECTED RESULT: BARBITUATES: 200 NG/ML UR FENTANYL DETECTED(A) NON DETECTED 11/16/2024 7:58 AM CDT [facility] Comment: FOR MEDICAL USE ONLY. CUTOFF CONCENTRATION FOR DETECTED RESULT: FENTANYL: 1.0 NG/ML Urine Non-Phlebotomy Collection / Unknown 11/16/2024 7:39 AM CDT 11/16/2024 7:40 AM CDT us Anita Genao LINE PAINTING MACHINE OPERATOR, [employer] URINE ORDERABLES Final Result [facility] [address] [place] [address] * (ABNORMAL) CBC with Auto Differential (11/16/2024 3:52 AM CDT) Only the most recent of2 resultswithin the time period is included. WBC 9.73 4.00 - 12.00 10(3)/mcL 11/16/2024 4:46 AM CDT [facility] RBC 4.80 4.40 - 5.80 10(6)/mcL 11/16/2024 4:46 AM CDT [facility] HEMOGLOBIN (HGB) 14.4 13.0 - 16.5 g/dL 11/16/2024 4:46 AM CDT [facility] HEMATOCRIT (HCT) 40.7 38.0 - 50.0 % 11/16/2024 4:46 AM CDT [facility] MCV 84.8 82.0 - 96.0 fL 11/16/2024 4:46 AM CDT [facility] MCH 30.0 26.0 - 32.0 pg 11/16/2024 4:46 AM CDT [facility] MCHC 35.4 31.0 - 36.0 g/dL 11/16/2024 4:46 AM CDT [facility] PLATELET COUNT 265 140 - 440 10(3)/mcL 11/16/2024 4:46 AM CDT [facility] RDW 11.7(L) 11.8 - 15.5 % 11/16/2024 4:46 AM CDT [facility] MPV 11.6 8.0 - 12.6 fL 11/16/2024 4:46 AM CDT [facility] NEUTROPHILS 56.5 40.0 - 68.0 % 11/16/2024 4:46 AM CDT [facility] LYMPHOCYTES 34.5 19.0 - 49.0 % 11/16/2024 4:46 AM CDT [facility] MONOCYTES 7.4 3.0 - 13.0 % 11/16/2024 4:46 AM CDT [facility] EOSINOPHILS 1.1 0.0 - 8.0 % 11/16/2024 4:46 AM CDT [facility] BASOPHILS 0.5 0.0 - 1.0 % 11/16/2024 4:46 AM CDT [facility] ABSOLUTE NEUTROPHILS 5.49(H) 1.40 - 5.30 10(3)/[facility] 11/16/2024 4:46 AM CDT [facility] ABSOLUTE LYMPHOCYTES 3.36(H) 0.90 - 3.30 10(3)/[facility] 11/16/2024 4:46 AM CDT [facility] ABSOLUTE MONOCYTES 0.72 0.10 - 0.90 10(3)/[facility] 11/16/2024 4:46 AM CDT [facility] ABSOLUTE EOSINOPHIL 0.11 0.00 - 0.50 10(3)/[facility] 11/16/2024 4:46 AM CDT [facility] ABSOLUTE BASOPHILS 0.05 0.00 - 0.10 10(3)/[facility] 11/16/2024 4:46 AM CDT [facility] NRBC PER 100 WBC 0 11/17/19 4:46 AM CDT [facility] Blood Venipuncture / Unknown 11/16/2024 3:52 AM CDT 11/16/2024 4:32 AM CDT us Anita Genao LINE PAINTING MACHINE OPERATOR, STONE DERRICKMAN AND RIGGER HEMATOLOGY ORDERABLES F inal Result [facility] [place] [address] * RHYTHM STRIP (11/16/2024 12:00 AM CDT) Only the most recent of5 resultswithin the time period is included. 11/16/2024 us Provider Scan IMG ECG ORDERABLES Final Result Performing Organization Address City/[facility]/ZIP Co de Phone Number RESULTING AGENCY * Gold Top Tube (11/15/2024 1:36 PM CDT) Blood No Phlebotomy Charged / Unknown 11/15/2024 1:36 PM CDT 11/15/2024 3:54 PM CDT Bri Mora MD CHEMISTRY ORDERABLES Final Res ult Performing Organization Address [facility] Co de Phone Number [facility] [address] [place] [address] * PROTIME (PT) (PROTHROMBIN TIME) (11/15/2024 1:36 PM CDT) PROTIME-PATIENT 13.6 11.6 - 14.8 sec 11/15/2024 2:49 PM CDT [facility] INR 1.0 0.9 - 1.2 11/15/2024 2:49 PM CDT [facility] Comment: Therapeutic Ranges INR = 2.0-3.0: Venous thromb, atrial fib, pul embolism, tissue heart valve, ami. INR = 2.5-3.5: Mechanical heart valve Critical value for INR is >/= 4.5 Blood Venipuncture / Unknown 11/15/2024 1:36 PM CDT 11/15/2024 2:26 PM CDT us Anita Genao LINE PAINTING MACHINE OPERATOR, [employer] DERRICKMAN AND RIGGER HEMATOLOGY ORDERABLES F inal Result Performing Organization Address [facility] Co de Phone Number [facility] [address] [place] [address] * Ethyl Alcohol (Ethanol) (11/15/2024 1:36 PM CDT) Pathologist [facility] ETHANOL <10 <10 mg/dL 11/15/2024 3:0 1 PM CDT [facility] Blood Venipuncture / Unknown 11/15/2024 1:36 PM CDT 11/15/2024 2:26 PM CDT us Anita Genao LINE PAINTING MACHINE OPERATOR, [employer] DERRICKMAN AND RIGGER CHEMISTRY ORDERABLES Fi nal Result [facility] [address] [place] [address] * (ABNORMAL) CMP (Comprehensive Metabolic Panel) (11/15/2024 1:36 PM CDT) SODIUM 140 136 - 145 mmol/L 11/15/2024 3:01 PM CDT [facility] POTASSIUM 3.7 3.5 - 5.1 mmol/L 11/15/2024 3:01 PM CDT [facility] CHLORIDE 104 98 - 107 mmol/L 11/15/2024 3:01 PM CDT [facility] CO2, VENOUS 24 22 - 30 mmol/L 11/15/2024 3:01 PM CDT [facility] ANION GAP 15.7 <18.0 mmol/L 11/15/2024 3:01 PM CDT [facility] GLUCOSE 75 70 - 99 mg/dL 11/15/2024 3:01 PM CDT [facility] BUN 14 9 - 21 mg/dL 11/15/2024 3:01 PM CDT [facility] CREATININE, BLOOD 1.16 0.70 - 1.30 mg/dL 11/15/2024 3:01 PM CDT [facility] BUN/CREATININE RATIO 12 12 - 20 ratio 11/15/2024 3:01 PM CDT [facility] TOTAL PROTEIN 7.5 6.0 - 8.0 g/dL 11/15/2024 3:01 PM CDT [facility] ALBUMIN 4.4 3.5 - 5.0 g/dL 11/15/2024 3:01 PM CDT [facility] A/G RATIO 1.4 1.0 - 2.2 11/15/2024 3:01 PM CDT [facility] CALCIUM 8.6(L) 8.7 - 10.5 mg/dL 11/15/2024 3:01 PM CDT [facility] T BILI 0.8 0.2 - 1.2 mg/dL 11/15/2024 3:01 PM CDT [facility] SGOT (AST) 29 <43 U/L 11/15/2024 3:01 PM CDT [facility] SGPT (ALT) 29 <56 U/L 11/15/2024 3:01 PM CDT [facility] ALKALINE PHOSPHATASE 119 40 - 150 U/L 11/15/2024 3:01 PM CDT [facility] GFR, ESTIMATED >60 >=60 11/15/2024 3:01 PM CDT [facility] Comment: Creatinine Clearance is the preferred criteria for selecting drug dose adjustments in renally impaired patients. The GFR is provided as additional pertinent clinical information. GFR is reported in mL/min/1.73 sq m. Calculation based on the Chronic Kidney Disease Epidemiology Collaboration (CKD- EPI) equation refit without adjustment for race. GFR, EST. >60 >=60 025 3:01 PM CDT [facility] GFR, EST. NONAFRICAN >60 >=60 11/15/2024 3:01 PM CDT [facility] Blood Venipuncture / Unknown 11/15/2024 1:36 PM CDT 11/15/2024 2:26 PM CDT us Anita Genao APRN, [employer] D[employer]ICK[employer] AND RIGGER CHEMISTRY ORDERABLES Fi nal Result [facility] [address] [place] [address] from Last 3 Months Insurance [place] Advance Directives * Full Code (Latest Code Status on File) Date Activated Date Inactivated Comments 11/15/2024 2:07 PM CPR-Full Treat ment: FULL ARREST: Attempt Resuscitation/CPR wit intubation and mechanical ventilation. PRE-ARREST: Use entire range of life support measures to stabilize the patient. Care Teams Metal Bumper Relationship Specialty Start Date End Date Provider, None [place] PCP - General 11/15/24
--- OUTSIDE RECORDS SUMMARY | 2025-01-22 10:51 | XMS_ITS | Patient Health Record ---
Author Organization [facility] Address [address] [place] [address] Care Team Providers Care Chemical Mixer Name Role Phone Gaurang Price Primary Care Provider [phone] Nerissa Ceron Unavailable Reason For Referral No Information Encounters Encounter Location Date Provider Diagnosis [facility] [address] [place] [address] 11/19/2024 Nerissa Ceron Plan Of Treatment No Information Insurance Providers Payer Name Payer Address Payer Phone Subscriber Number Group Number Insured Name Patient Relationship to Insured Coverage Start Date Coverage End Date [facility] Health Plan [id number] [address] [phone] [id number] Parviz Nguyen Self - patient is the insured 5 MEDICAID [address] [place] [address] [id number] Parviz Nguyen Self - patient is the insured 4
--- OUTSIDE RECORDS SUMMARY | 2025-01-22 10:51 | XMS_ITS | Clinical Summary ---
Author Organization [facility] Address [facility] [place] [address] Care Team Providers Care Cage Fighter Name Role Phone None, Provider MD Primary Care Provider Unavaila ble Allergies No known active allergies Medications buprenorphine (SUBUTEX) [address] 1 tablet (2 mg total) under the tongue 2 (two) times daily as needed (withdrawal symptoms). 11/18/2024 Active methocarbamol (ROBAXIN) 750 MG Tab Take 1 tablet (750 mg total) by mouth every 6 (six) hours as needed (muscle spasms). 11/18/2024 Active naloxone (NARCAN) 4 MG/0.1ML nasal spray 1 spray by Nasal route as needed for Opioid reversal. 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 11/08/2023 Encounters Date Type Department Care Team Description 11/20/2024 4:24 PM CDT - 11/20/2024 6:05 PM CDT Emergency [facility] [place] [address] Lewis Rider MD Substance Abuse Discharge Disposition: Home or Self Care (Routine Discharge) 11/20/2024 Travel from Last 3 Months Family History Medical History Relation Comments Hypertension Father Drug Abuse Mother Relation Status Comments Father Alive Mother Alive Social History Tobacco Use Types Packs/Day Years Used Date Smoking Tobacco: Every Day Cigarettes 0.5 34.6 Started: 1990 Smokeless Tobacco: Never Tobacco Cessation:Ready to Q uit: Not Asked; Counseling Given: Not Answered Alcohol Use Standard Drinks/Week Comments Not Currently 0 (1 standard drink = 0.6 oz pur e alcohol) has not used for about a yr B1300 Health Literacy Answer Date Recor ded How often do you need to hav e someone help you when you read instructions, pamphlets, or other written material from your doctor or pharmacy? Rarely 11/01/2023 [facility] Utilities Answer Date Recorded In the past 12 months has th e [employer], oil, or water [employer] threatened to shut off services in your home? No 11/01/2023 Humiliation, Afraid, Rape, and Kick questionnair e Answer Date Recorded Within the last year, have y ou been afraid of your partner or ex-partner? No 10/31/2023 Within the last year, have y ou been humiliated or emotionally abused in other ways by your partner or ex-partner? No Within the last year, have y ou been kicked, hit, slapped, or otherwise physically hurt by your partner or ex-partner? No 10/31/2023 Within the last year, have y ou been raped or forced to have any kind of sexual activity by your partner or ex-partner? No 10/31/2023 Overall Financial Resource Strain (CARDIA) Answe r Date Recorded How hard is it for you to pa y for the very basics like food, housing, medical care, and heating? Very hard 10/31/2023 Hunger Vital Sign Answer Date Recorded Within the past 12 months, y ou worried that your food would run out before you got the money to buy more. Often true 10/31/19 24 Within the past 12 months, t he food you bought just didn't last and you didn't have money to get more. Often true 10/31/2023 PRAPARE - Transportation Answer Date Re corded In the past 12 months, has l ack of transportation kept you from medical appointments or from getting medications? Yes 10/18 In the past 12 months, has l ack of transportation kept you from meetings, work, or from getting things needed for daily living? Yes 10/31/2023 Housing Stability Vital Sign Answer Rito e Recorded In the last 12 months, was t here a time when you were not able to pay the mortgage or rent on time? Yes 11/01/2023 In the past 12 months, how m any times have you moved where you were living? 4 11/01/2023 At any time in the past 12 m [facility], were you homeless or living in a usp (including now)? Yes 11/01/2023 Sex and Gender Information Value Date Recorded Sex Assigned at Male 11/20/2024 4:50 PM CDT Legal Sex Male 4:33 AM CDT Gender Identity Not on file Sexual Orientation Not on file Last Filed Vital Signs Vital Sign Reading Time Taken Comments Blood Pressure 135/79 11/20/2024 5:15 PM CDT Pulse 88 11/20/2024 4:27 PM CDT Temperature 36.7 C (98.1 F) 11/20/2024 4:27 PM CDT Respiratory Rate 20 11/20/2024 4:27 PM CDT Oxygen Saturation 98% 11/20/2024 5:15 PM CDT Inhaled Oxygen Concentration - - Weight 90.7 kg (200 lb) 11/20/2024 4:27 PM CDT Height 188 cm (6' 2) 11/20/2024 4:27 PM CDT Body Mass Index 25.68 11/20/2024 4:27 PM CDT Plan of Treatment Health Maintenance Due Date Last Done Comments Annual Physical 1983 Hepatitis B Vaccines (1 of 3 - 19+ 3-dose series) 1999 Pneumococcal Vaccine: Pediat rics (0 to 5 Years) and At-Risk Patients (6 to 49 Years) (1 of 2 - PCV) 1999 HPV Vaccines (1 - 3-dose SCD M series) 2007 COVID-19 Vaccine (2023-2 5 season) 2024 DTaP, Tdap and Td Vaccines ( 2 - Td or Tdap) 11/23/2032 11/23/2022 Hepatitis C Completed 10/31/2023 Meningococcal B Vaccine Aged Out No l onger eligible based on patient's age to complete this topic Meningococcal Vaccine Aged Out No jose maria omega eligible based on patient's age to complete this topic RSV Immunizations Under 20 Months Aged Out No longer eligible based on patient's age to complete this topic Goals Goal Patient Goal Type Associated Problems Recent Progress Patient-Stated? Author Health - patient able to perform ADLs independently Lifestyle Angelika De La Garza RN Procedures Procedure Name Priority Date/Time Associated Diagnosis Comments HEPATITIS PANEL,ACUTE Routine 10/31/2023 12:28 PM CDT from Last 3 Months or Most Recently Relevant to Health Maintenance Results * HEPATITIS PANEL,ACUTE (10/31/2023 12:28 PM CDT) HEPATITIS B SURFACE AG NON-REACTI VE NON-REACTI VE 10/31/2023 2:32 PM CDT [facility] HEP B CORE IGM NON-REACTI VE NON-REACTI VE 10/31/2023 2:57 PM CDT [facility] HAV IGM NON-REACTI VE NON-REACTI VE 10/31/2023 2:59 PM CDT [facility] HEPATITIS C AB NON-REACTI VE NON-REACTI VE 10/31/2023 2:56 PM CDT [facility] 10/31/2023 12:2 8 PM CDT Germán Rousseau MD LABORATORY Final Result [facility] [address] [place] [address], from Last 3 Months or Most Recently Relevant to Health Maintenance Additional Health Concerns Infection Onset Date Last Indicated 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
== END 2025-01-22 10:58 | disposition left against medical advice (07) ==
PROVIDERS: Emergency Provider Nurse Practitioner
DX: S01.80XA Unspecified open wound of other part of head, initial encounter (principal); L08.9 Local infection of the skin and subcutaneous tissue, unspecified; X58.XXXA Exposure to other specified factors, initial encounter
CPT/HCPCS: 99213; G0463

== ENCOUNTER 2025-02-04 05:41 | Emergency (ER) | payer OTHER, BC, SELFPAY ==
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
[2025-02-04 05:41] VITALS: BP 145/94; PULSE 99; RESP 17; TEMP 36.8; O2SAT 99
[2025-02-04 07:31] VITALS: BP 130/82; PULSE 73; RESP 16; O2SAT 100
[2025-02-04 07:51] LABS: Hematocrit 40.4 % (42.0-52.0); Hemoglobin 13.6 g/dL (14.0-18.0); Immature Granulocyte Percent A 0.7 % (0-0.5); Lymphocytes Absolute Auto 1.52 K/mm3 (0.9-3.2); Mean Corpuscular HGB Conc 33.7 g/dl (32-36); Mean Corpuscular Hemoglobin 29.4 pg (26-34); Mean Corpuscular Volume 87.3 fl (80-100); Nucleated Red Blood Cells Absolute Auto 0.000 K/mm3 (0.0-0.012); Nucleated Red Blood Cells Perc 0.0 % (0.0-0.2); Platelet Count Result 276 k/mm3 (150-375); Red Blood Count 4.63 M/mm3 (4.6-6.20); White Blood Count 11.0 K/mm3 (4.5-10.0)
[2025-02-04 08:09] LABS: Alanine Aminotransferase 31 U/L (6-50); Albumin Level 4.3 g/dL (3.5-5.1); Alkaline Phosphatase 114 U/L (38-126); Anion Gap 6 mmol/L (4-12); Aspartate Amino Transferase 33 U/L (17-59); Bilirubin,Total 1.2 mg/dL (0.2-1.3); Blood Urea Nitrogen 12 mg/dL (9-20); Calcium 9.1 mg/dL (8.4-10.2); Carbon Dioxide 30 mmol/L (22-30); Chloride 103 mmol/L (98-107); Estimated CRCL calculation 83 ml/min; Estimated Glomerular Filt Rate > 60; Glucose 115 mg/dL (65-110); INR 1.1; Potassium 4.3 mmol/L (3.4-5.0); Prothrombin Time 14.2 Seconds (11.1-14.7); Sodium 139 mmol/L (137-145); Total Protein 7.6 g/dL (6.3-8.2)
[2025-02-04 08:10] LABS: Partial Thromboplastin Time 28.6 Seconds (22.3-36.8)
--- OUTSIDE RECORDS SUMMARY | 2025-02-04 08:19 | XMS_ITS | Patient Health Record ---
Author Organization [facility] Address [address] [place] [address] Care Team Providers Care Supervisor Briar Shop Name Role Phone Gaurang Price Primary Care Provider Nerissa Ceron Unavailable Reason For Referral No Information Encounters Encounter Location Date Provider Diagnosis [facility] [address] [place] [address] 11/19/2024 Nerissa Ceron Plan Of Treatment No Information Insurance Providers Payer Name Payer Address Payer Phone Subscriber Number Group Number Insured Name Patient Relationship to Insured Coverage Start Date Coverage End Date [facility] Health Plan [address] [address] [id number] Parviz Nguyen Self - patient is the insured 5 [address]ID [address] [place] [address] [id number] Parviz Nguyen Self - patient is the insured 4
--- OUTSIDE RECORDS SUMMARY | 2025-02-04 08:19 | XMS_ITS | Clinical Summary ---
Author Organization [facility] Address [address] [place] [address] Phone Care Team Providers Care Claim Analyst Name Role Phone Provider, None Primary Care [...] naloxone HCl (Narcan) 4 MG/0.1ML Liquid 1 [place] by Nasal route as needed for Opioid [...] drink = 0.6 oz pur e alcohol) [facility] Utilities Answer Date Recorded In the past 12 months has [employer] electric, gas, oil, or water [place] threatened to shut off services in your home? Patient declined 11/15/2024 Social Connection and Isolation Panel Answer Date Recorded In a typical week, how many times do you talk on the phone with family, friends, or neighbors? Patient declined 11/15/2024 How often do you get togethe r with friends or relatives? Patient declined 11/15/2024 How often do you attend samaritan or faith serv ices? Patient declined 11/15/2024 Do you belong to any clubs o r organizations such as samaritan groups, unions, fraternal or athletic groups, or [...] medical care, and heating? Patient declined 11/15/2024 [facility] [place] of Occupat ional Health - Occupational Stress [...] any time in the past 12 m [place], were you homeless or living in a long term (including now)? Patient declined 11/15/2024 Sex and [...] CDT from Last 3 Months Results * LAVENDER TOP TUBE (11/18/2024 5:11 AM CDT) Blood No Phlebotomy Charged / Unknown 11/18/2024 5:11 AM CDT 11/18/2024 5:11 AM CDT us Rubia Humphries MD HEMATOLOGY ORDERABLE S Final Result [facility] [place] [address] * (ABNORMAL) BASIC METABOLIC PANEL W/ CALCIUM TOTAL (11/18/2024 5:11 AM CDT) Only the most recent of3 resultswithin the time period is included. SODIUM 138 136 - 145 mmol/L 11/18/2024 5:34 AM CDT [facility] POTASSIUM 3.5 3.5 - 5.1 mmol/L 11/18/2024 5:34 AM CDT [facility] CHLORIDE 103 98 - 107 mmol/L 11/18/2024 5:34 AM CDT [facility] CO2, VENOUS 26 22 - 30 mmol/L 11/18/2024 5:34 AM CDT [facility] ANION GAP 12.5 <18.0 mmol/L 11/18/2024 5:34 AM CDT [facility] GLUCOSE 125(H) 70 - 99 mg/dL 11/18/2024 5:34 AM CDT [facility] BUN 13 9 - 21 mg/dL 11/18/2024 5:34 AM CDT [facility] CREATININE, BLOOD 1.27 0.70 - 1.30 mg/dL 11/18/2024 5:34 AM CDT [facility] BUN/CREATININE RATIO 10(L) 12 - 20 ratio 11/18/2024 5:34 AM CDT [facility] CALCIUM 8.3(L) 8.7 - 10.5 mg/dL 11/18/2024 5:34 AM CDT [facility] GFR, ESTIMATED >60 >=60 11/18/2024 5:34 AM CDT [facility] Comment: Creatinine Clearance is the preferred criteria for selecting drug dose adjustments in renally impaired patients. The GFR is provided as additional pertinent clinical information. GFR is reported in mL/min/1.73 sq m. Calculation based on the Chronic Kidney Disease Epidemiology Collaboration (CKD- EPI) equation refit without adjustment for race. GFR, EST. >60 >=60 025 5:34 AM CDT [facility] GFR, EST. NONAFRICAN >60 >=60 11/18/2024 5:34 AM CDT [facility] Blood BLOOD SPECIMEN / Unknown Venipuncture / Unknown 11/18/2024 5:11 AM CDT 11/18/2024 5:11 AM CDT Rubia Humphries MD CHEMISTRY ORDERABLES Final Result [facility] [place] [address] * THYROID SCREEN WITH REFLEX (11/17/2024 4:41 AM CDT) TSH 0.992 0.300 - 5.000 mIU/L 11/17/2024 6:20 AM CDT [facility] Blood BLOOD SPECIMEN / Unknown Venipuncture / Unknown 11/17/2024 4:41 AM CDT 11/17/2024 5:33 AM CDT us Rubia Humphries MD CHEMISTRY ORDERABLES Final Result [facility] [place] [address] * HEMOGLOBIN A1C W/ ESTIMATED GLUCOSE (11/17/2024 4:41 AM CDT) HGB-A1C 5.2 4.0 - 6.0 % 11/17/2024 6:09 AM CDT [facility] Est Average Glucose 102.5 mg/dL 11/17/2024 6:09 AM CDT [facility] Blood Venipuncture / Unknown 11/17/2024 4:41 AM CDT 11/17/2024 5:32 AM CDT Narrative [facility] - 11/17/2024 6:09 AM CDT HEMOGLOBIN A1C: DIABETIC PATIENTS: WELL-CONTROLLED: 6.2 - 7.0 INTERMEDIATE WELL-CONTROLLED: 7.0 - 9.0 POORLY-CONTROLLED: >9.0 Specimens containing greater than 5% of Hemoglobin F may result in lower than expected % HbA1C results. Rubia Humphries MD CHEMISTRY ORDERABLES Final Result Performing Organization Address [facility] Co de Phone Number [facility] [address] [place] [address] * B-TYPE NATRIURETIC PEPTIDE (BNP) (11/17/2024 4:41 AM CDT) Pathologist [facility] B TYPE NATRIURETIC PEPTIDE <15 <100 pg/mL 11/17/2024 6:00 AM CDT [facility] Blood Venipuncture / Unknown 11/17/2024 4:41 AM CDT 11/17/2024 5:31 AM CDT Rubia Humphries MD CHEMISTRY ORDERABLES Final Result Performing Organization Address [facility] de Phone Number [facility] [address] [place] [address] * ADULT TRANS THORACIC ECHO 2D COMPLETE (11/16/2024 8:31 PM CDT) AV Peak Grad mmHg 5.38 mmHg RESULTING AGENCY Mean Aortic Valve Gradient (MAVG) 3 mmHg RESULTING AGENCY LV end lillian diam cm 4.5 cm RESULTING AGENCY LV end sys diam cm 2.6 cm RESULTING AGENCY Aortic Root Diam cm 3.4 cm RESULTING AGENCY LVOT Peak Michael m/sec [id number] m/sec RESULTING AGENCY AV Peak Michael m/sec [...] Patient name YESSENIA Ratliff 1980 Patient ID (UPI) [id number] Indications: Congestive heart failure. Study Date11/16/2024 Technical [...] lbs. BMI (BSA) 25.67 kg/m^2 (2.17 m^2) Hotel Service Manager Ady Davis Room 237 R Interpreting Bautista Referring BISMARK HATFILED Physician Angelica Physician Procedure Note Angelica Baum MD - 11/17/2024 Transthoracic Echocardiography Report (TTE) Patient name YESSENIA Ratliff 1980 Patient ID (UP) [id number] Indications: Congestive heart failure. Study Date11/16/2024 Technical [...] lbs. BMI (BSA) 25.67 kg/m^2 (2.17 m^2) Hotel Service Manager Garsia Susan Room 237 R Interpreting Bautista Referring BISMARK HATFIELD Physician Angelica Physician Bri Mora MD IMG ECHO ORDERABLES Edited Res ult - Final * (ABNORMAL) URINALYSIS (UA) MACROSCOPIC (11/16/2024 7:39 AM CDT) SPECIFIC GRAVITY 1.010 1.003 - 1.030 11/16/2024 7:47 AM CDT [facility] URINE PH 7.0 5.0 - 9.0 11/16/2024 7:47 AM CDT [facility] WBC ESTERASE Negative Negative 11/16/2024 7:47 AM CDT [facility] NITRITE Negative Negative 11/16/2024 7:47 AM CDT [facility] PROTEIN, RANDOM URINE 30 mg/dL(A) Negative 11/16/2024 7:47 AM CDT [facility] URINE GLUCOSE, QUAL Negative Negative 11/16/2024 7:47 AM CDT [facility] URINE KETONES Negative Negative 11/16/2024 7:47 AM CDT [facility] UROBILINOGEN Normal Normal mg/dL 11/16/2024 7:47 AM CDT [facility] URINE BLOOD 10 /uL(A) Negative leigha/ul 11/16/2024 7:47 AM CDT [facility] URINALYSIS COLOR Yellow 11/17/19 7:47 AM CDT [facility] URINALYSIS CLARITY Slightly Cloudy 11/16/2024 7:47 AM CDT [facility] Urine Non-Phlebotomy Collection / Unknown 11/16/2024 7:39 AM CDT 11/16/2024 7:40 AM CDT us Anita Genao SECURITIES COUNSELOR, SHIPPING TECHNICIAN URINE ORDERABLES Final Result [facility] [address] [place] [address] * (ABNORMAL) URINE DRUG SCREEN (11/16/2024 7:39 AM CDT) UR AMPHETAMINE DETECTED(A) NON DETECTED 11/16/2024 7:58 AM CDT [facility] Comment: FOR MEDICAL USE ONLY. CUTOFF CONCENTRATION FOR DETECTED RESULT: AMPHETAMINE: 500 NG/ML UR BENZODIAZEPINES NON DETECTED NON DETECTED 11/16/2024 7:58 AM CDT [facility] Comment: FOR MEDICAL USE ONLY. CUTOFF CONCENTRATION FOR DETECTED RESULT: BENZODIAZAPINE: 200 NG/ML UR COCAINE METABOLITE DETECTED(A) NON DETECTED 11/16/2024 7:58 AM CDT [facility] Comment: FOR MEDICAL USE ONLY. CUTOFF CONCENTRATION FOR DETECTED RESULT: COCAINE: 150 NG/ML UR OPIATES NON DETECTED NON DETECTED 11/16/2024 7:58 AM CDT [facility] Comment: FOR MEDICAL USE ONLY. CUTOFF CONCENTRATION FOR DETECTED RESULT: OPIATES: 300 NG/ML UR PHENCYCLIDINE NON DETECTED NON DETECTED 11/16/2024 7:58 AM CDT [facility] Comment: FOR MEDICAL USE ONLY. CUTOFF CONCENTRATION FOR DETECTED RESULT: PCP: 25 NG/ML UR CANNABINOID NON DETECTED NON DETECTED 11/16/2024 7:58 AM CDT [facility] Comment: FOR MEDICAL USE ONLY. CUTOFF CONCENTRATION FOR DETECTED RESULT: THC (MARIJUANA): 50 NG/ML UR BARBITURATE NON DETECTED NON DETECTED 11/16/2024 7:58 AM CDT [facility] Comment: FOR MEDICAL USE ONLY. CUTOFF CONCENTRATION FOR DETECTED RESULT: BARBITUATES: 200 NG/ML UR FENTANYL DETECTED(A) NON DETECTED 11/16/2024 7:58 AM CDT [facility] Comment: FOR MEDICAL USE ONLY. CUTOFF CONCENTRATION FOR DETECTED RESULT: FENTANYL: 1.0 NG/ML Urine Non-Phlebotomy Collection / Unknown 11/16/2024 7:39 AM CDT 11/16/2024 7:40 AM CDT us Anita Genao APRN, CNP URINE ORDERABLES Final Result [facility] [address] [place] [address] * (ABNORMAL) CBC WITH AUTO DIFFERENTIAL (11/16/2024 3:52 AM CDT) Only the most recent of2 resultswithin the time period is included. WBC 9.73 4.00 - 12.00 10(3)/mcL 11/16/2024 4:46 AM CDT [facility] RBC 4.80 4.40 - 5.80 10(6)/mcL 11/16/2024 4:46 AM CDT [facility] HEMOGLOBIN (HGB) 14.4 13.0 - 16.5 g/dL 11/16/2024 4:46 AM CDT [facility] HEMATOCRIT (HCT) 40.7 38.0 - 50.0 % 11/16/2024 4:46 AM CDT [facility] MCV 84.8 82.0 - 96.0 fL 11/16/2024 4:46 AM CDT [facility] MCH 30.0 26.0 - 32.0 pg 11/16/2024 4:46 AM CDT [facility] MCHC 35.4 31.0 - 36.0 g/dL 11/16/2024 4:46 AM CDT [facility] PLATELET COUNT 265 140 - 440 10(3)/mcL 11/16/2024 4:46 AM CDT [facility] RDW 11.7(L) 11.8 - 15.5 % 11/16/2024 4:46 AM CDT [facility] MPV 11.6 8.0 - 12.6 fL 11/16/2024 4:46 AM CDT [facility] NEUTROPHILS 56.5 40.0 - 68.0 % 11/16/2024 4:46 AM CDT [facility] LYMPHOCYTES 34.5 19.0 - 49.0 % 11/16/2024 4:46 AM CDT [facility] MONOCYTES 7.4 3.0 - 13.0 % 11/16/2024 4:46 AM CDT [facility] EOSINOPHILS 1.1 0.0 - 8.0 % 11/16/2024 4:46 AM CDT [facility] BASOPHILS 0.5 0.0 - 1.0 % 11/16/2024 4:46 AM CDT [facility] ABSOLUTE NEUTROPHILS 5.49(H) 1.40 - 5.30 10(3)/mcL 11/16/2024 4:46 AM CDT [facility] ABSOLUTE LYMPHOCYTES 3.36(H) 0.90 - 3.30 10(3)/[facility] 11/16/2024 4:46 AM CDT [facility] ABSOLUTE MONOCYTES 0.72 0.10 - 0.90 10(3)/[facility] 11/16/2024 4:46 AM CDT [facility] ABSOLUTE EOSINOPHIL 0.11 0.00 - 0.50 10(3)/[facility] 11/16/2024 4:46 AM CDT [facility] ABSOLUTE BASOPHILS 0.05 0.00 - 0.10 10(3)/[facility] 11/16/2024 4:46 AM CDT [facility] NRBC PER 100 WBC 0 11/17/19 4:46 AM CDT [facility] Blood Venipuncture / Unknown 11/16/2024 3:52 AM CDT 11/16/2024 4:32 AM CDT us Anita Genao SECURITIES COUNSELOR, SHIPPING TECHNICIAN HEMATOLOGY ORDERABLES F inal Result [facility] [place] [address] * RHYTHM STRIP (11/16/2024 12:00 AM CDT) Only the most recent of5 resultswithin the time period is included. 11/16/2024 us Provider Scan IMG ECG ORDERABLES Final Result Performing Organization Address [facility] Co de Phone Number RESULTING AGENCY * GOLD TOP TUBE (11/15/2024 1:36 PM CDT) Blood No Phlebotomy Charged / Unknown 11/15/2024 1:36 PM CDT 11/15/2024 3:54 PM CDT Bri Mora MD CHEMISTRY ORDERABLES Final Res ult Performing Organization Address [facility] Co de Phone Number [facility] [address] [place] [address] * PROTIME (PT) (PROTHROMBIN TIME) (11/15/2024 1:36 PM CDT) PROTIME-PATIENT 13.6 11.6 - 14.8 sec 11/15/2024 2:49 PM CDT [facility] INR 1.0 0.9 - 1.2 11/15/2024 2:49 PM CDT [facility] Comment: Therapeutic Ranges INR = 2.0-3.0: Venous thromb, atrial fib, pul embolism, tissue heart valve, ami. INR = 2.5-3.5: Mechanical heart valve Critical value for INR is >/= 4.5 Blood Venipuncture / Unknown 11/15/2024 1:36 PM CDT 11/15/2024 2:26 PM CDT us Anita Genao SECURITIES COUNSELOR, SHIPPING TECHNICIAN HEMATOLOGY ORDERABLES F inal Result Performing Organization Address [facility] de Phone Number [facility] [address] [place] [address] * ETHYL ALCOHOL (ETHANOL) (11/15/2024 1:36 PM CDT) Pathologist [facility] ETHANOL <10 <10 mg/dL 11/15/2024 3:0 1 PM CDT [facility] Blood Venipuncture / Unknown 11/15/2024 1:36 PM CDT 11/15/2024 2:26 PM CDT us Anita Genao SECURITIES COUNSELOR, SHIPPING TECHNICIAN CHEMISTRY ORDERABLES Fi nal Result [facility] [address] [place] [address] * (ABNORMAL) CMP (COMPREHENSIVE METABOLIC PANEL) (11/15/2024 1:36 PM CDT) Pathologist [facility] SODIUM 140 136 - 145 mmol/L 11/15/2024 3:01 PM CDT [facility] POTASSIUM 3.7 3.5 - 5.1 mmol/L 11/15/2024 3:01 PM CDT [facility] CHLORIDE 104 98 - 107 mmol/L 11/15/2024 3:01 PM CDT [facility] CO2, VENOUS 24 22 - 30 mmol/L 11/15/2024 3:01 PM CDT [facility] ANION GAP 15.7 <18.0 mmol/L 11/15/2024 3:01 PM CDT [facility] GLUCOSE 75 70 - 99 mg/dL 11/15/2024 3:01 PM CDT [facility] BUN 14 9 - 21 mg/dL 11/15/2024 3:01 PM CDT [facility] CREATININE, BLOOD 1.16 0.70 - 1.30 mg/dL 11/15/2024 3:01 PM CDT [facility] BUN/CREATININE RATIO 12 12 - 20 ratio 11/15/2024 3:01 PM CDT [facility] TOTAL PROTEIN 7.5 6.0 - 8.0 g/dL 11/15/2024 3:01 PM CDT [facility] ALBUMIN 4.4 3.5 - 5.0 g/dL 11/15/2024 3:01 PM CDT [facility] A/G RATIO 1.4 1.0 - 2.2 11/15/2024 3:01 PM CDT [facility] CALCIUM 8.6(L) 8.7 - 10.5 mg/dL 11/15/2024 3:01 PM CDT [facility] T BILI 0.8 0.2 - 1.2 mg/dL 11/15/2024 3:01 PM CDT [facility] SGOT (AST) 29 <43 U/L 11/15/2024 3:01 PM CDT [facility] SGPT (ALT) 29 <56 U/L 11/15/2024 3:01 PM CDT [facility] ALKALINE PHOSPHATASE 119 40 - 150 U/L 11/15/2024 3:01 PM CDT [facility] GFR, ESTIMATED >60 >=60 11/15/2024 3:01 PM CDT [facility] Comment: Creatinine Clearance is the preferred criteria for selecting drug dose adjustments in renally impaired patients. The GFR is provided as additional pertinent clinical information. GFR is reported in mL/min/1.73 sq m. Calculation based on the Chronic Kidney Disease Epidemiology Collaboration (CKD- EPI) equation refit without adjustment for race. GFR, EST. >60 >=60 025 3:01 PM CDT [facility] GFR, EST. NONAFRICAN >60 >=60 11/15/2024 3:01 PM CDT [facility] Blood Venipuncture / Unknown 11/15/2024 1:36 PM CDT 11/15/2024 2:26 PM CDT us Anita Genao APRN, [employer] CHEMISTRY ORDERABLES Fi nal Result [facility] [place] [address] from Last 3 Months Insurance MEDICAID [place] Advance Directives * Full Code (Latest Code Status on File) Date Activated Date Inactivated Comments 11/15/2024 2:07 PM CPR-Full Treat ment: FULL ARREST: Attempt Resuscitation/CPR wit intubation and mechanical ventilation. PRE-ARREST: Use entire range of life support measures to stabilize the patient. Care Teams Claim Analyst Relationship Specialty Start Date End Date Provider, None [place] PCP - General 11/15/24
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
== END 2025-02-04 11:30 ==
PROVIDERS: Emergency Provider General Practice
DX: S00.83XA Contusion of other part of head, initial encounter (principal); F17.200 Nicotine dependence, unspecified, uncomplicated; V49.9XXA Car occupant (driver) (passenger) injured in unspecified traffic accident, initial encounter
CPT/HCPCS: 36415; 70450; 71045; 71260; 72125; 74177; 80053; 82077; 85025; 85610; 85730; 99284; Q9967